=== PATIENT | female | born 1965 | race Caucasian/White ===

== ENCOUNTER → 2017-06-19 | Outpatient (CLI) | payer MEDICAID ==
[2017-06-19 13:17] LABS: BASOPHILS % (AUTO) 0.4 %; EOSINOPHILS % (AUTO) 0.3 %; HCT - HEMATOCRIT 48.2 % (37.0-47.0); LYMPHOCYTES # (AUTO) 3.5 10^3/uL (1.5-3.5); LYMPHOCYTES % (AUTO) 32.7 %; MEAN CORPUSCULAR HEMOGLOBIN 29.1 pg (27.0-31.0); MEAN CORPUSCULAR HGB CONC 33.1 g/dL (32.0-36.0); MEAN CORPUSCULAR VOLUME 87.7 fL (81.0-99.0); MEAN PLATELET VOLUME 9.7 fL (7.9-10.8); MONOCYTES # (AUTO) 0.6 10^3/uL (0.0-1.0); MONOCYTES % (AUTO) 5.8 %; NEUTROPHILS # (AUTO) 6.5 10^3/uL (1.5-6.6); NEUTROPHILS % (AUTO) 60.8 %; NUCLEATED RED BLOOD CELLS AUTO 0.1 /100WBC; RED CELL DISTRIBUTION WIDTH 15.7 % (12.0-15.0); UNCORRECTED WHITE BLOOD COUNT 10.7 x10^3/uL; WHITE BLOOD COUNT 10.7 x10^3/uL (4.8-10.8)
[2017-06-19 14:30] LABS: HEMOGLOBIN A1C 0.66 g/dL
[2017-06-19 17:12] LABS: ALBUMIN/GLOBULIN RATIO 1.5 (1.0-2.2); BILIRUBIN,TOTAL 0.5 mg/dL (0.2-1.0); BUN - BLOOD UREA NITROGEN 10 mg/dL (6-20); CALCIUM 9.6 mg/dL (8.5-10.3); CARBON DIOXIDE - CO2 26 mmol/L (21-32); CHLORIDE 100 mmol/L (101-111); CHOL/HDL RATIO 5.6 (<4.4); CHOLESTEROL 261 mg/dL; CREATININE 0.7 mg/dL (0.4-1.0); GFR - MDRD 88 (>89); GLUCOSE 95 mg/dL (70-100); HDL CHOLESTEROL 47 mg/dL; LDL/HDL RATIO 3.7 (<4.4); POTASSIUM 3.7 mmol/L (3.5-5.0); SODIUM 138 mmol/L (135-145); TOTAL PROTEIN 7.5 g/dL (6.7-8.2); TRIGLYCERIDES 195 mg/dL; VLDL CHOLESTEROL 39 mg/dL
== END ==
LOC: LAB.WCP 09:33
PROVIDERS: ATTEND Family Medicine
DX: Z00.00 Encounter for general adult medical examination without abnormal findings (principal); E03.9 Hypothyroidism, unspecified
CPT/HCPCS: 36415; 80053; 80061; 83036; 84439; 84443; 84481; 85025

== ENCOUNTER 2017-10-30 10:34 | Day surgery (SDC) | payer MEDICAID ==
[2017-10-30] MEDS ORDERED: LACTATED RINGERS 1,000 ML IV ONE (10:39)
[2017-10-30] MEDS ORDERED: fentaNYL 100 MCG/2 ML VIAL IVP ONE (11:34)
[2017-10-30] MEDS ORDERED: MIDAZOLAM 2 MG/2 ML VIAL IVP ONE (11:34)
[2017-10-30 12:28] VITALS: BP 120/65
== END 2017-10-30 10:35 | disposition home or self-care (01) ==
LOC: SDS 10:34
PROVIDERS: ATTEND Surgery
PROC: 0DBL8ZX Excision of Transverse Colon, Via Natural or Artificial Opening Endoscopic, Diagnostic (ICD-10-PCS; 2017-10-30)
PROC: 0DBP8ZX Excision of Rectum, Via Natural or Artificial Opening Endoscopic, Diagnostic (ICD-10-PCS; 2017-10-30)
PROC: 0DBH8ZX Excision of Cecum, Via Natural or Artificial Opening Endoscopic, Diagnostic (ICD-10-PCS; principal; 2017-10-30 12:00)
DX: Z12.11 Encounter for screening for malignant neoplasm of colon (principal); K64.8 Other hemorrhoids; D12.0 Benign neoplasm of cecum; K62.1 Rectal polyp; K63.5 Polyp of colon; I10 Essential (primary) hypertension; E78.5 Hyperlipidemia, unspecified; F17.210 Nicotine dependence, cigarettes, uncomplicated; E03.9 Hypothyroidism, unspecified
CPT/HCPCS: 45380; J7120